=== PATIENT | male | born 1980 | race Caucasian/White ===

== ENCOUNTER 2017-05-28 14:00 | Observation (INO) | payer SELFPAY ==
[~2017-05-28] VITALS: Ht 172.7 cm; Wt 69.0 kg
[2017-05-28 14:02] VITALS: BP 115/70; PULSE 100; RESP 14; TEMP 98.8; O2SAT 99
[2017-05-28 14:04] VITALS: PULSE 94
[2017-05-28] MEDS ORDERED: SODIUM CHLOR 0.9% 1000 ML INJ 1,000 ML IV SCH (17:11)
[2017-05-28] MEDS ORDERED: cefTRIAXone 250 MG VIAL IM ONE (17:15)
[2017-05-28] MEDS ORDERED: AZITHROMYCIN PWD FOR SUSP 1 GM PACKET PO ONE (17:15)
[2017-05-28] MEDS ORDERED: LIDOCAINE HCL 1% 50 ML VIAL XX ONE (17:15)
--- NOTE | 2017-05-28 17:17 | PD ---
HPI Chief Complaint: Complaint Time Seen by Provider: 16:52 Travel History International Travel<30 days: No Contact w/Intl Traveler<30days: No Traveled to known affect area: No History of Present Illness HPI 36-year-old male here for several different complaints. When he states he has had flulike symptoms for 1-2 weeks. He reports frequent diarrhea and a cough. He also believes he may been an STD reporting dysuria and difficulty urinating for one week. He is having suprapubic discomfort which is moderate, constant, worse with movements. He is sexually active with one and one partner. No pain or lesions. He is unsure if he has had a fever. He admits to using marijuana but denies any other illicit drugs or IVDU. PFSH Past Medical History Tetanus Vaccination: < 5 Years Past Surgical History Abdominal Surgery: Yes (HERNIA REPAIR) Other Surgery: Yes (ORBIT FX REPAIR; HERNIATED DISC SURGERY) Social History Alcohol Use: Yes Tobacco Use: Yes (1 PPD) Substance Use: Yes (marijuana) Allergies-Medications (Allergen,Severity, Reaction): Coded Allergies: No Known Allergies (Unverified Allergy, Unknown, 05/28/17) Reported Meds & Prescriptions Reported Meds & Active Scripts Active No Active Prescriptions or Reported Medications Review of Systems Except as stated in HPI: all other systems reviewed are Neg Physical Exam Narrative GENERAL: Well-developed, well-nourished, uncomfortable SKIN: Focused skin assessment warm/dry. No rash. HEAD: Atraumatic. Normocephalic. EYES: Pupils equal and round. No scleral icterus. No injection or drainage. ENT: No nasal bleeding or discharge. Mucous membranes pink and moist. NECK: Trachea midline. No JVD. CARDIOVASCULAR: Regular rate and rhythm. No murmur appreciated. RESPIRATORY: No accessory muscle use. Clear to auscultation. Breath sounds equal bilaterally. GASTROINTESTINAL: Abdomen soft, nondistended. Mild suprapubic tenderness without peritoneal signs. Normal bowel sounds. : Normal exam without lesions, masses, or tenderness. MUSCULOSKELETAL: No obvious deformities. No clubbing. No cyanosis. No edema. NEUROLOGICAL: Awake and alert. No obvious cranial nerve deficits. Motor grossly within normal limits. Normal speech. PSYCHIATRIC: Appropriate mood and affect; insight and judgment normal. Data Data Last Documented VS Vital Signs Date Time Temp Pulse Resp B/P (MAP) Pulse Ox O2 Delivery O2 Flow Rate FiO2 05/28/17 20:18 82 20 119/71 (87) 100 Room Air 05/28/17 14:02 98.8 Orders Orders Complete Blood Count With Diff (05/28/17 17:11) Comprehensive Metabolic Panel (05/28/17 17:11) Lipase (05/28/17 17:11) Prothrombin Time / Inr (Pt) (05/28/17 17:11) Act Partial Throm Time (Ptt) (05/28/17 17:11) Urinalysis - C+S If Indicated (05/28/17 17:11) Ct Abd/Pel W Iv Contrast(Rout) (05/28/17 17:11) Iv Access Insert/Monitor (05/28/17 17:11) Ecg Monitoring (05/28/17 17:11) Oximetry (05/28/17 17:11) Sodium Chlor 0.9% 1000 Ml Inj (Ns 1000 M (05/28/17 17:11) Sodium Chloride 0.9% Flush (Ns Flush) (05/28/17 17:15) Gc And Chlamydia Pcr (05/28/17 17:11) Azithromycin Powd Pack (Zithromax Powd P (05/28/17 17:15) Ceftriaxone Inj (Rocephin Inj) (05/28/17 17:15) Influenzae A/B Antigen (05/28/17 17:11) Non-Formulary Drug (05/28/17 17:30) Diatrizoate Liq ( Gastroview Liq) (05/28/17 17:30) Oral Contrast - Adult (05/28/17 17:28) Urine Culture (05/28/17 17:20) Creatine Kinase (Cpk) (05/28/17 18:24) Drug Screen, Random Urine (05/28/17 18:24) Phenazopyridine (Pyridium) (05/28/17 18:45) Doxycycline (Vibratab) (05/28/17 18:45) Iohexol 350 Inj (Omnipaque 350 Inj) (05/28/17 19:23) Urinary Catheter Insert/Apply (05/28/17 19:55) Labs Laboratory Tests Test 05/28/17 17:20 White Blood Count 11.8 TH/MM3 Red Blood Count 4.43 MIL/MM3 Hemoglobin 14.0 GM/DL Hematocrit 41.3 % Mean Corpuscular Volume 93.3 FL Mean Corpuscular Hemoglobin 31.6 PG Mean Corpuscular Hemoglobin Concent 33.8 % Red Cell Distribution Width 12.6 % Platelet Count 278 TH/MM3 Mean Platelet Volume 8.8 FL Neutrophils (%) (Auto) 82.1 % Lymphocytes (%) (Auto) 10.0 % Monocytes (%) (Auto) 6.9 % Eosinophils (%) (Auto) 0.7 % Basophils (%) (Auto) 0.3 % Neutrophils # (Auto) 9.7 TH/MM3 Lymphocytes # (Auto) 1.2 TH/MM3 Monocytes # (Auto) 0.8 TH/MM3 Eosinophils # (Auto) 0.1 TH/MM3 Basophils # (Auto) 0.0 TH/MM3 CBC Comment DIFF FINAL Differential Comment Prothrombin Time 10.3 SEC Prothromb Time International Ratio 1.0 RATIO Activated Partial Thromboplast Time 32.7 SEC Urine Color YELLOW Urine Turbidity HAZY Urine pH 6.0 Urine Specific [place] 1.009 Urine Protein TRACE mg/dL Urine Glucose (UA) NEG mg/dL Urine Ketones NEG mg/dL Urine Occult Blood TRACE Urine Nitrite NEG Urine Bilirubin NEG Urine Urobilinogen LESS THAN 2.0 MG/DL Urine Leukocyte Esterase LARGE Urine RBC 19 /hpf Urine WBC /hpf Urine WBC Clumps RARE Urine Squamous Epithelial Cells <1 /hpf Urine Amorphous Sediment RARE Urine Bacteria FEW /hpf Urine Mucus FEW /lpf Microscopic Urinalysis Comment CULTURE INDICATED Blood Urea Nitrogen 7 MG/DL Creatinine 0.96 MG/DL Random Glucose 123 MG/DL Total Protein 8.3 GM/DL Albumin 3.8 GM/DL Calcium Level 9.1 MG/DL Alkaline Phosphatase 91 U/L Aspartate Amino Transf (AST/SGOT) 21 U/L Alanine Aminotransferase (ALT/SGPT) 24 U/L Total Bilirubin 0.5 MG/DL Sodium Level 133 MEQ/L Potassium Level 3.8 MEQ/L Chloride Level 97 MEQ/L Carbon Dioxide Level 29.4 MEQ/L Anion Gap 7 MEQ/L Estimat Glomerular Filtration Rate 88 ML/MIN Total Creatine Kinase 65 U/L Lipase 61 U/L Urine Opiates Screen NEG Urine Barbiturates Screen NEG Urine Amphetamines Screen NEG Urine Benzodiazepines Screen NEG Urine Cocaine Screen POS Urine Cannabinoids Screen POS Chlamydia trachomatis DNA (PCR) NOT DETECTED Neisseria gonorrhoeae DNA (PCR) DETECTED MDM Medical Decision Making Medical Screen Exam Complete: Yes Emergency Medical Condition: Yes Differential Diagnosis UTI, cystitis, urethritis, STI, colitis, diverticulitis, appendicitis, influenza , metabolic abnormality, renal insufficiency Narrative Course Vital signs reviewed. CBC and CMP are reviewed and are essentially unremarkable. Lipase is 61. Influenza is negative. Urine drug screen is positive for cocaine and marijuana. UA: Hazy, trace occult blood, large leukocyte esterase, 19 rbc's, innumerable WBCs, rare wbc clumps, few bacteria. The patient was empirically treated for gonorrhea and chlamydia with IM Rocephin and oral azithromycin. He will also be started on doxycycline for urethritis. CT abdomen pelvis: CONCLUSION: 1. Nonspecific edema/induration of the prostate and seminal vesicles. A small intraprostatic abscess is not excludable. No abscess or free fluid in the pelvic cavity. 2. Intussusception of the jejunum, presumably incidental/transient. 3. Slight fatty infiltration of the liver. 4. A few small, benign cysts of the kidneys. The patient has been extremely uncomfortable in the emergency department going to and from the bathroom several times only producing a small amount of urine. Clinically the patient does not have a bowel obstruction. He is not vomiting. His last bowel movement was this morning. He does report having diarrhea for about 2 weeks. Case discussed with on-call urologist Dr. Tang. Plan is to place a Whitlock catheter. Patient is amenable to this plan. Coud catheter placed with over 650 cc of immediate urine output. The patient experienced immediate relief of discomfort. There are no peritoneal signs on the patient's abdominal exam. Patient was made aware of all findings and will be admitted for further treatment and evaluation. Case discussed with hospitalist Dr. Granado who will admit the patient to her service. Diagnosis Primary Impression: Prostatitis Qualified Codes: N41.0 - Acute prostatitis Additional Impressions: Urinary retention Intussusception Admitting Information Admitting Physician Requests: Observation Scripts No Active Prescriptions or Reported Meds Bienvenido Alexander MD May 28, 2017 17:17
[2017-05-28] MEDS ORDERED: NON-FORMULARY DRUG ONE (17:30)
[2017-05-28] MEDS ORDERED: DIATRIZOATE MEGLUM/DIATRIZOATE SOD 9 ML CUP PO ONE (17:30)
[2017-05-28 17:50] VITALS: O2SAT 99
[2017-05-28 17:58] LABS: AUTOMATED NEUTROPHIL # 9.7 TH/MM3 (1.8-7.7); BASOPHIL % 0.3 % (0.0-2.0); EOSINOPHIL # 0.1 TH/MM3 (0-0.4); EOSINOPHIL % 0.7 % (0.0-4.0); HEMATOCRIT 41.3 % (39.0-51.0); LYMPHOCYTE # 1.2 TH/MM3 (1.0-4.8); MEAN CELL VOLUME 93.3 FL (80.0-100.0); MEAN CORPUSCULAR HEMOGLOBIN 31.6 PG (27.0-34.0); MEAN CORPUSCULAR HGB CONC 33.8 % (32.0-36.0); MEAN PLATELET VOLUME 8.8 FL (7.0-11.0); MONO % 6.9 % (0.0-8.0); MONOCYTE # 0.8 TH/MM3 (0-0.9); NEUT % 82.1 % (16.0-70.0); PLATELET COUNT 278 TH/MM3 (150-450); RED BLOOD COUNT 4.43 MIL/MM3 (4.50-5.90); RED CELL DISTRIBUTION WIDTH 12.6 % (11.6-17.2); WHITE BLOOD COUNT 11.8 TH/MM3 (4.0-11.0)
[2017-05-28 18:09] LABS: PROTHROMBIN TIME - PATIENT 10.3 SEC (9.8-11.6)
[2017-05-28 18:10] LABS: AMORPHOUS SEDIMENT, URINE RARE; BACTERIA, URINE FEW /hpf; BILIRUBIN, URINE NEG (NEG); BLOOD, URINE TRACE (NEG); GLUCOSE,URINE NEG (NEG); KETONE, URINE NEG (NEG); MUCUS URINE FEW /lpf (OCC); NITRITE,URINE NEG (NEG); SQUAMOUS EPITHELIAL CELL URINE <1 /hpf (0-5); URINE COLOR YELLOW (YELLW/STRAW); URINE LEUKOCYTE ESTERASE LARGE (NEG); WHITE BLOOD CELL CLUMPS RARE
[2017-05-28 18:23] LABS: ALBUMIN 3.8 GM/DL (3.4-5.0); AST (GOT) 21 U/L (15-37); BICARBONATE 29.4 MEQ/L (21.0-32.0); BLOOD UREA NITROGEN 7 MG/DL (7-18); CALCIUM 9.1 MG/DL (8.5-10.1); CHLORIDE 97 MEQ/L (98-107); CREATININE 0.96 MG/DL (0.60-1.30); GLOMERULAR FILTRATION RATE 88 ML/MIN (>89); GLUCOSE,RANDOM 123 MG/DL (74-106); SODIUM (NA) 133 MEQ/L (136-145)
[2017-05-28 18:27] LABS: ALKALINE PHOSPHATASE 91 U/L (45-117); ALT (GPT) 24 U/L (12-78); TOTAL BILIRUBIN ADULT 0.5 MG/DL (0.2-1.0); TOTAL PROTEIN 8.3 GM/DL (6.4-8.2)
[2017-05-28] MEDS ORDERED: PHENAZOPYRIDINE HCL 100 MG TAB PO ONE (18:45)
[2017-05-28] MEDS ORDERED: DOXYCYCLINE HYCLATE 100 MG TAB PO ONE (18:45)
[2017-05-28] MEDS ORDERED: IOHEXOL 350 MG/ML 10 ML VIAL (for RAD DIAG) IVCONTRAST ONE (19:23)
--- NOTE | 2017-05-28 19:41 | RADRPT ---
EXAM DATE/TIME: 05/28/2017 19:22 [facility] COMPARISON: No previous studies available for comparison. INDICATIONS : Difficulty and pain with urinating; possible STD. IV CONTRAST: 96 cc Omnipaque 350 (iohexol) IV ORAL CONTRAST: Prescribed oral contrast ingested. RADIATION DOSE: 7.43 CTDIvol (mGy) MEDICAL HISTORY : None SURGICAL HISTORY : Inguinal hernia repair. ENCOUNTER: Initial ACUITY: 2 weeks PAIN SCALE: 7/10 LOCATION: abdomen TECHNIQUE: Volumetric scanning of the abdomen and pelvis was performed. Using automated exposure control and ad justment of the mA and/or kV according to patient size, radiation dose was kept as low as reasonably achievable to obtain optimal diagnostic quality images. DICOM format image data is available electro nically for review and comparison. FINDINGS: There is mild edema around the prostate, seminal vesicles and posterior urinary bladder. No masses ar e demonstrated. 9 x 19 mm fluid collection centrally in the prostate, appears to be just to the left of the urethra. No extraprostatic abscess/fluid collection. There is an intussusception of the jejunum, for example series 2 image 41. No associated inflammatory changes or obstruction; this is most likely transient. The rest of the gastrointestinal tract is wit hin normal limits. The appendix is well-visualized, normal. A few scattered cysts of both kidneys measuring up to 1.9 cm on the right and 1.1 cm on the left. No hydronephrosis or acute renal abnormality. Liver is slightly fatty infiltrated. Spleen, pancreas and adrenal glands within normal limits. CONCLUSION: 1. Nonspecific edema/induration of the prostate and seminal vesicles. A small intraprostatic abscess is not excludable. No abscess or free fluid in the pelvic cavity. 2. Intussusception of the jejunum, presumably incidental/transient. 3. Slight fatty infiltration of the liver. 4. A few small, benign cysts of the kidneys. Christopher Piedra MD on May 28, 2017 at 19:33 Board Certified Radiologist. This report was verified electronically.
[2017-05-28 20:18] VITALS: BP 119/71; PULSE 82; RESP 20; O2SAT 100
[2017-05-28] MEDS: SODIUM CHLORIDE 0.9% FLUSH 10 ML FLUSH IV FLUSH PRN (20:36)
[2017-05-28] MEDS ORDERED: DIATRIZOATE MEGLUM/DIATRIZOATE SOD 120 ML BTL (for RAD DIAG) PO ONE (20:43)
--- NOTE | 2017-05-28 20:52 | HHI.HP ---
[facility] No Primary Care Physician Admission Diagnosis prostatitis, urinary retention, intussusception Diagnoses: (1) UTI (urinary tract infection) Diagnosis: Principal (2) Prostatitis Diagnosis: Principal (3) Intussusception Diagnosis: Principal (4) Cocaine abuse Diagnosis: Principal (5) Tobacco abuse Diagnosis: Principal Travel History International Travel<30 Days: No Contact w/Intl Traveler <30 Da: No Traveled to Known Affected Are: No History of Present Illness This is a 36-year-old male with no significant PMH of present the ER with complaints of urinary retention and dysuria. Per patient symptoms have been ongiong x2 wks, believes symptoms are due to "STD". Denies fever, chills, nausea, vomiting or diarrhea. No penile discharge, no lesions. Reports burning pain, 10/10, worse w/ urination, non-radiating. No h/o similar symptoms. On arrival, BP 150/70, HR 100, O2 sat 99% on RA, Afebrile. W WBC 11.8. Chemistry unremarkable except for GFR 88. INR 1.0. A positive for UTI. Urine Drug Screen positive for Cocaine and Marijuana. CT Abdomen/Pelvis was nonspecific edema/induration. Prostate and seminal vesicles, small intraprostatic abscess not excluded, intussusception of cook helper vegetable in am presumably incidental/transient. S/p Whitlock in ER w/ 600cc urinary output. Chlam/GN negative. S/p Rocephin/Zithro in ER. Dr. Tang consulted, will goldal pt in am. Dr. Bullock consulted, no emergent surgical intervention indicated at this time. Review of Systems Except as stated in HPI: all other systems reviewed are Neg ROS: 14 point review of systems otherwise negative. Past Family Social History Past Medical History PMH: None Past Surgical History PAST SURGICAL HISTORY: Hernia Repair, Orbital Fracture Allergies: Coded Allergies: No Known Allergies (Unverified Allergy, Unknown, 05/28/17) Family History PAST FAMILY HISTORY: Reviewed. No h/o DM or CAD Social History PAST SOCIAL HISTORY: Positive for alcohol. Smokes 1ppd. +Cocaine/Marijuana. Physical Exam Vital Signs Vital Signs Date Time Temp Pulse Resp B/P (MAP) Pulse Ox O2 Delivery O2 Flow Rate FiO2 05/28/17 20:18 82 20 119/71 (87) 100 Room Air 05/28/17 17:50 99 05/28/17 14:04 94 05/28/17 14:02 98.8 100 14 115/70 (85) 99 Physical Exam PE: GENERAL: Young white male in no acute distress. HEENT: PERRLA, EOMI. No scleral icterus or conjunctival pallor. No lid lag or facial droop. CARDIOVASCULAR: Regular rate and rhythm. No obvious murmurs to auscultation. No chest tenderness to palpation. RESPIRATORY: No obvious rhonchi or wheezing. Clear to auscultation. Breath sounds equal bilaterally. GASTROINTESTINAL: Abdomen soft, non-tender, nondistended. BS normal. Whitlock in place, clear urine. MUSCULOSKELETAL: Extremities without clubbing, cyanosis, or edema. No obvious deformities. NEUROLOGICAL: Awake, alert and oriented x4. No focal neurologic deficits. Moving both upper and lower extremities spontaneously. Laboratory Laboratory Tests Test 05/28/17 17:20 White Blood Count 11.8 Red Blood Count 4.43 Hemoglobin 14.0 Hematocrit 41.3 Mean Corpuscular Volume 93.3 Mean Corpuscular Hemoglobin 31.6 Mean Corpuscular Hemoglobin Concent 33.8 Red Cell Distribution Width 12.6 Platelet Count 278 Mean Platelet Volume 8.8 Neutrophils (%) (Auto) 82.1 Lymphocytes (%) (Auto) 10.0 Monocytes (%) (Auto) 6.9 Eosinophils (%) (Auto) 0.7 Basophils (%) (Auto) 0.3 Neutrophils # (Auto) 9.7 Lymphocytes # (Auto) 1.2 Monocytes # (Auto) 0.8 Eosinophils # (Auto) 0.1 Basophils # (Auto) 0.0 CBC Comment DIFF FINAL Differential Comment Prothrombin Time 10.3 Prothromb Time International Ratio 1.0 Activated Partial Thromboplast Time 32.7 Urine Color YELLOW Urine Turbidity HAZY Urine pH 6.0 Urine Specific [place] 1.009 Urine Protein TRACE Urine Glucose (UA) NEG Urine Ketones NEG Urine Occult Blood TRACE Urine Nitrite NEG Urine Bilirubin NEG Urine Urobilinogen LESS THAN 2.0 Urine Leukocyte Esterase LARGE Urine RBC 19 Urine WBC Urine WBC Clumps RARE Urine Squamous Epithelial Cells <1 Urine Amorphous Sediment RARE Urine Bacteria FEW Urine Mucus FEW Microscopic Urinalysis Comment CULTURE INDICATED Blood Urea Nitrogen 7 Creatinine 0.96 Random Glucose 123 Total Protein 8.3 Albumin 3.8 Calcium Level 9.1 Alkaline Phosphatase 91 Aspartate Amino Transf (AST/SGOT) 21 Alanine Aminotransferase (ALT/SGPT) 24 Total Bilirubin 0.5 Sodium Level 133 Potassium Level 3.8 Chloride Level 97 Carbon Dioxide Level 29.4 Anion Gap 7 Estimat Glomerular Filtration Rate 88 Total Creatine Kinase 65 Lipase 61 Urine Opiates Screen NEG Urine Barbiturates Screen NEG Urine Amphetamines Screen NEG Urine Benzodiazepines Screen NEG Urine Cocaine Screen POS Urine Cannabinoids Screen POS Chlamydia trachomatis DNA (PCR) NOT DETECTED Neisseria gonorrhoeae DNA (PCR) DETECTED Date/Time Source Procedure Growth Status 05/28/17 17:20 Nasal Washing Influenza Types A,B Antigen (TL) - Final NEGATIVE FOR FLU A AND B ANTIGEN.... Complete 05/28/17 17:20 Urine Random Urine Urine Culture Pending Received Result Diagram: 05/28/17 1720 05/28/17 1720 Caprini VTE Risk Assessment Caprini VTE Risk Assessment: No/Low Risk (score <= 1) Caprini Risk Assessment Model Point Value = 1 Point Value = 2 Point Value = 3 Point Value = 5 Age 41-60 Minor surgery BMI > 25 kg/m2 Swollen legs Varicose veins or History of unexplained or recurrent spontaneous Oral contraceptives or hormone replacement Sepsis (< 1 month) Serious lung disease, including pneumonia (< 1 month) Abnormal pulmonary function Acute myocardial infarction Congestive heart failure (< 1 month) History of inflammatory bowel disease Medical patient at bed rest Age 61-74 Arthroscopic surgery Major open surgery (> 45 min) Laparoscopic surgery (> 45 min) Malignancy Confined to bed (> 72 hours) Immobilizing plaster cast Central venous access Age >= 75 History of VTE Family history of VTE Factor V Leiden Prothrombin [id number] Lupus anticoagulant Anticardiolipin antibodies Elevated serum homocysteine Heparin-induced thrombocytopenia Other congenital or acquired thrombophilia Stroke (< 1 month) Elective arthroplasty Hip, pelvis, or leg fracture Acute spinal cord injury (< 1 month) Prophylaxis Regimen Total Risk Factor Score Risk Level Prophylaxis Regimen 0-1 Low Early ambulation 2 Moderate Order ONE of the following: *Sequential Compression Device (SCD) *Heparin 5000 units SQ BID 3-4 Higher Order ONE of the following medications: *Heparin 5000 units SQ TID *Enoxaparin/Lovenox 40 mg SQ daily (WT < 150 kg, CrCl > 30 mL/min) *Enoxaparin/Lovenox 30 mg SQ daily (WT < 150 kg, CrCl > 10-29 mL/min) *Enoxaparin/Lovenox 30 mg SQ BID (WT < 150 kg, CrCl > 30 mL/min) AND/OR *Sequential Compression Device (SCD) 5 or more Highest Order ONE of the following medications: *Heparin 5000 units SQ TID (Preferred with Epidurals) *Enoxaparin/Lovenox 40 mg SQ daily (WT < 150 kg, CrCl > 30 mL/min) *Enoxaparin/Lovenox 30 mg SQ daily (WT < 150 kg, CrCl > 10-29 mL/min) *Enoxaparin/Lovenox 30 mg SQ BID (WT < 150 kg, CrCl > 30 mL/min) AND *Sequential Compression Device (SCD) Assessment and Plan Problem List: (1) UTI (urinary tract infection) ICD Code: N39.0 - Urinary tract infection, site not specified (2) Prostatitis ICD Code: N41.9 - Inflammatory disease of prostate, unspecified Status: Acute (3) Intussusception ICD Code: K56.1 - Intussusception Status: Acute (4) Cocaine abuse ICD Code: F14.10 - Cocaine abuse, uncomplicated (5) Tobacco abuse ICD Code: Z72.0 - Tobacco use Assessment and Plan A/P: 1. UTI: U/a w/ UTI, follow up cultures, IV Cipro, IVF for hydration. Pyridium as needed. 2. Prostatitis: w/ associated urinary retention, s/p Whitlock w/ good urine output. Monitor I/O. CT Abd/Pelvis w/ induration of prostate and seminal vesicles with possible small intraprostatic abscess, images reviewed by me. Start Cipro IV, continue w/ IVF. Dr. Tang consulted, will eval in am. 3. Intussusception: of jejunum, incidental finding on CT. Dr. Bullock consulted by ER physician, no emergent surgical intervention needed. Will monitor closely for possible obstruction. Analgesics/antiemetics as needed. 4. Cocaine Abuse: Pt counselled. Ativan prn. 5. Tobacco Abuse: Pt counselled. NicoDerm if needed 6. DVT Prophylaxis: SCD/Teds. 7. Social work for d/c planning as needed. 8. Case discussed w/ ER physician at length, labs/records/imaging reviewed by me. Problem Qualifiers (1) Prostatitis: Qualified Codes: N41.0 - Acute prostatitis Maria Luisa Granado MD May 28, 2017 20:52
[2017-05-28] MEDS: DOCUSATE SODIUM 50 MG/SENNA 8.6 MG TAB PO SCH (21:00)
[2017-05-28] MEDS ORDERED: ONDANSETRON HCL 4 MG/2 ML VIAL IVP PRN (21:00)
[2017-05-28] MEDS ORDERED: MAGNESIUM HYDROXIDE SUSP 30 ML CUP PO PRN (21:00)
[2017-05-28] MEDS ORDERED: LORazepam 2 MG/ML VIAL IV PUSH PRN (21:00)
[2017-05-28] MEDS ORDERED: SENNOSIDES 8.6 MG TAB PO PRN (21:00)
[2017-05-28] MEDS ORDERED: SODIUM CHLORIDE 0.9% FLUSH 10 ML FLUSH IV FLUSH PRN (21:00)
[2017-05-28] MEDS ORDERED: BISACODYL 10 MG SUPP RECTAL PRN (21:00)
[2017-05-28] MEDS ORDERED: ACETAMINOPHEN 325 MG TAB PO PRN (21:00)
[2017-05-28] MEDS ORDERED: LACTULOSE SYRUP 20 GM/30 ML CUP PO PRN (21:00)
[2017-05-28] MEDS: SODIUM CHLOR 0.9% 1000 ML INJ 1,000 ML IV SCH (21:00)
[2017-05-28] MEDS: SODIUM CHLORIDE 0.9% FLUSH 10 ML FLUSH IV FLUSH SCH (21:00)
[2017-05-28] MEDS: ACETAMINOPHEN/HYDROcodone 325 MG/5 MG TAB PO PRN (23:17)
[2017-05-29 00:48] VITALS: BP 108/57; PULSE 86; RESP 18; TEMP 97; O2SAT 97
[2017-05-29 04:29] VITALS: BP 96/56; PULSE 73; RESP 18; TEMP 97.8; O2SAT 96
--- NOTE | 2017-05-29 05:52 | MB ---
cc: JASPAL SALVADOR MD DATE OF CONSULTATION 05/28/2017 REASON FOR CONSULTATION Abdominal pain, intussusception. HISTORY OF PRESENT ILLNESS The patient is a 36-year-old male who presents with no past medical history, complaint of urinary retention, dysuria. The patient states these symptoms have been going on for two weeks. There is concern for an STD. He denies any fevers or chills but reports 10/10 burning pain at urination and flu-like symptoms. He had further workup including a UA showing UTI and a positive drug screen for marijuana and cocaine. He had further evaluation with CT scan showing prostatitis and intussusception concern. Whitlock has been placed. A Neurology consult has been placed. Surgery was consulted for evaluation. The patient denies any significant obstructive symptoms. He has had some diarrhea and has had some bowel movements. He denies any nausea, vomiting or significant upper abdominal pain. PAST MEDICAL HISTORY No significant past medical history. PAST SURGICAL HISTORY 1. Hernia repair. 2. Orbit fracture. ALLERGIES No known drug allergies. FAMILY HISTORY Denies diabetes or hypertension. SOCIAL HISTORY Denies IVDA. Positive smoking, EtOH and cocaine and marijuana. MEDICATIONS See EMR. REVIEW OF SYSTEMS GENERAL: Complains of flu-like symptoms. Denies fevers. HEENT: Denies eye pain, ear pain. NECK: Denies swelling or pain. LUNGS: Denies cough or wheeze. HEART: Denies palpitation or chest pain. ABDOMEN: Complaint of low pelvic pain. No significant abdominal pain. : Complains of dysuria and burning. ENDOCRINE: Denies polyuria, polydipsia. MUSCULOSKELETAL: Denies arthralgias or myalgias. NEUROLOGIC: Denies numbness or tingling. INTEGUMENT: Denies any masses or lesions. PHYSICAL EXAMINATION GENERAL: The patient in no acute distress. VITAL SIGNS: Temperature 98, pulse 100, respirations 14, blood pressure 115/70, saturation 99%. HEENT: Pupils equal, round, reactive. NECK: Supple. Trachea midline. LUNGS: Clear to auscultation. HEART: S1-S2, regular. ABDOMEN: Soft, mild tenderness to deep palpation to the pelvic area, nondistended. No rebound. NEURO: GCS of 15. 5/5 motor in all extremities. INTEGUMENT: No obvious masses or lesions. PSYCH: Appropriate mood, appropriate judgment. LABORATORY AND DIAGNOSTIC DATA WBC 11.8, hemoglobin 14, hematocrit 41.3, platelets 278. Sodium 133, potassium 3.8, chloride 97, BUN 7, creatinine 0.9, calcium 9, AST 21, ALT 24, alkaline phos of 91, lipase 61. INR is 1. CT reviewed by myself showing edema of the prostate, concern for prostatitis. Possible abscess. Intussusception at jejunum. No dilated bowel. ASSESSMENT The patient is a 36-year-old male who presents with concern for a positive UA, prostatitis, a UTI and an incidental intussusception. PLAN After a full clinical, radiologic and laboratory workup, the patient with the above-named issues including intussusception. At this point discussed with the patient. The patient has no obstructive symptoms. This could either be an incidental finding and really normal anatomy, just concern for the views of the CT in the way the CT was evaluated. Also discussed with the patient could be a mass or tumor causing lead point for possible intussusception. Further discuss other etiologies such as a lymph node or lymphatic swelling tissue. Discussed with the patient that typically intussusception is an obstructive process and could strangulate bowel. Therefore we will need to follow this closely. However, at this time unlikely for operative intervention as the patient is very young and appears to be asymptomatic from this. We will consider getting upper GI, small-bowel follow-through for further evaluation and delineation versus repeating a CT scan or possible another x-ray. Discussed with the patient in detail, states understanding, agreed and we will proceed. MD EBCKA Harrison/CORTNEY /11:44 PM /5:37 AM
[2017-05-29 07:13] LABS: AUTOMATED NEUTROPHIL # 6.2 TH/MM3 (1.8-7.7); BASOPHIL % 0.5 % (0.0-2.0); EOSINOPHIL # 0.1 TH/MM3 (0-0.4); HEMATOCRIT 37.9 % (39.0-51.0); LYMPHOCYTE # 1.3 TH/MM3 (1.0-4.8); MEAN CORPUSCULAR HGB CONC 34.4 % (32.0-36.0); MEAN PLATELET VOLUME 9.3 FL (7.0-11.0); MONO % 8.5 % (0.0-8.0); MONOCYTE # 0.7 TH/MM3 (0-0.9); PLATELET COUNT 253 TH/MM3 (150-450); RED BLOOD COUNT 4.07 MIL/MM3 (4.50-5.90); RED CELL DISTRIBUTION WIDTH 12.6 % (11.6-17.2); WHITE BLOOD COUNT 8.3 TH/MM3 (4.0-11.0)
[2017-05-29 07:25] LABS: ALBUMIN 3.4 GM/DL (3.4-5.0); AST (GOT) 19 U/L (15-37); BICARBONATE 30.7 MEQ/L (21.0-32.0); BLOOD UREA NITROGEN 6 MG/DL (7-18); CALCIUM 9.2 MG/DL (8.5-10.1); CHLORIDE 100 MEQ/L (98-107); CREATININE 0.85 MG/DL (0.60-1.30); GLOMERULAR FILTRATION RATE 101 ML/MIN (>89); GLUCOSE,RANDOM 84 MG/DL (74-106); SODIUM (NA) 140 MEQ/L (136-145)
[2017-05-29 07:26] LABS: ALT (GPT) 23 U/L (12-78)
[2017-05-29 07:29] LABS: ALKALINE PHOSPHATASE 79 U/L (45-117); TOTAL BILIRUBIN ADULT 0.6 MG/DL (0.2-1.0); TOTAL PROTEIN 7.6 GM/DL (6.4-8.2)
[2017-05-29 07:50] VITALS: BP 105/71; PULSE 85; RESP 18; TEMP 97.8; O2SAT 98
[2017-05-29] MEDS: SODIUM CHLORIDE 0.9% FLUSH 10 ML FLUSH IV FLUSH SCH ×2 (08:00→21:00)
[2017-05-29] MEDS: CIPROFLOXACIN 400 MG PREMIX 200 ML IV SCH ×2 (08:00→21:00)
[2017-05-29] MEDS: DOCUSATE SODIUM 50 MG/SENNA 8.6 MG TAB PO SCH ×2 (08:01→21:00)
[2017-05-29] MEDS: SODIUM CHLOR 0.9% 1000 ML INJ 1,000 ML IV SCH ×2 (08:01→18:30)
[2017-05-29] MEDS: MORPHINE SULFATE 2 MG/ML INJ IV PUSH PRN ×2 (08:15→11:18)
--- NOTE | 2017-05-29 08:54 | MB ---
cc: VANESA HOOK DATE OF CONSULTATION 05/29/2017 HISTORY OF PRESENT ILLNESS Mr. Parekh is a 36-year-old male who presents with irritative voiding symptoms for the last two weeks. He states that he was having frequency and urgency at times with dysuria. He also stated that he had diarrhea at times as well as a drip from his penis also was noted. He does have a history of herpes in the past. He denies any other medical problems. He denies any history of urinary tract infections. PAST MEDICAL HISTORY His medical history is notable for herpes. PAST SURGICAL HISTORY 1. Inguinal hernia repair with mesh. 2. Orbital fracture. 3. Back surgery for herniated disk. ALLERGIES No known drug allergies. FAMILY HISTORY No family history of prostate cancer. SOCIAL HISTORY He is noted to smoke and drink and his recent tox cream was positive for marijuana and cocaine. REVIEW OF SYSTEMS Notes irritative voiding symptoms such as dysuria, urgency, frequency with nocturia and dysuria. Denies gait disturbances, bleeding disorders. Denies chest pain, shortness of breath. Denies abdominal pain. Denies nausea or vomiting. States that he has had fever and chills, though no fever on admission. Denies gross hematuria. The remaining review of systems were reviewed and were negative. PHYSICAL EXAMINATION VITAL SIGNS: Presently is 97.8 temperature, heart rate 85, respiratory 18, 105/71, 98% on room air. GENERAL: He is well-developed, well-nourished 36-year-old male in no acute distress. HEENT: Normocephalic, atraumatic. Pupils equal, round, regular, reactive to light. Extraocular movements intact. NECK: Supple. HEART: Regular rate and rhythm. LUNGS: Clear. ABDOMEN: soft, nontender, nondistended. : Whitlock is in place. Normal phallus. Testes are descended. Prostate is enlarged, approximately 40 grams. Some tenderness is noted but nonspecific. EXTREMITIES: No cyanosis, clubbing or edema. NEUROLOGICAL EXAMINATION: Cranial nerves II-XII intact. PSYCH: Generalized mood. LABORATORY DATA White count 8.3, hemoglobin 13.0, hematocrit 37.9, platelet count of 253. Sodium 140, potassium 3.4, chloride 100, CO2 38.7, BUN of 6, creatinine 0.85, glucose of 84. Urinalysis shows large leukocyte esterase with 19 red cells and numerous white cells. PT 10.3 and INR 1.0, PTT is 32.7. Tox screen is positive for cocaine and marijuana. PCR DNA for Neisseria gonorrhea was detected. IMAGING STUDY 1. Nonspecific edema with induration of the prostate and seminal vesicles. Questionable small intraprostatic asset is not excluded. No free fluid or abscess in the pelvic cavity is noted. 2. Intussusception of the jejunum presently incidental, transient. Fatty infiltration of the liver is noted and a few small benign cysts in the kidneys. ASSESSMENT This is a 36-year-old male admitted with irritative voiding symptoms with dysuria, urgency, frequency and evidence of gonorrhea with urinary retention. Whitlock placed for [address] scan demonstrates questionable/possible abscess of the prostate. PLAN 1. Maintain the Whitlock catheter now and continue to continue with IV antibiotics. 2. We will continue to observe and may repeat the scan within the next 36-72 hours to reevaluate the prostate at that time. 3. We will follow closely with you. Thank you for the consult and allowing me to participate in the care of this patient. Vanesa THOMPSON/CORTNEY /8:23 AM /8:36 AM
--- NOTE | 2017-05-29 10:51 | RADRPT ---
EXAM DATE/TIME: 05/29/2017 08:44 [facility] COMPARISON: CT ABDOMEN & PELVIS W CONTRAST, May 28, 2017, 19:22. INDICATIONS : Patient with abdominal pain and difficulty urinating.. Abnormal CT demonstrating an intussusception i n the proximal jejunum. FLUORO TIME: 1.9 minutes IMAGE COUNT: 19 CONTRAST: [place] IMAGING TIME(S): 15 min, 30 min, 45 min MEDICAL HISTORY : prostatitis, urinary retension SURGICAL HISTORY : Inguinal hernia repair. ENCOUNTER: Initial ACUITY: 2 weeks PAIN SCORE: 7/10 LOCATION: Bilateral Abdomen. FINDINGS: Preliminary film is unremarkable. The stomach is grossly unremarkable. Examination of the small bowel demonstrates normal mucosal pattern involving the jejunum and ileum. There is no evidence of mass or obstruction. No intraluminal filling defects are identified. Small bowel transit time is normal at 45 minutes. Fluoroscopy of the abdomen and terminal ileum demonstrat es no abnormality. CONCLUSION: Unremarkable small bowel examination. The intussusception seen on the CT is not visu alized. Bharath Valente MD on May 29, 2017 at 10:44 Board Certified Radiologist. This report was verified electronically.
[2017-05-29 12:36] VITALS: BP 101/64; PULSE 76; RESP 18; TEMP 97.6; O2SAT 99
--- NOTE | 2017-05-29 13:36 | HHI.PR ---
Subjective Remarks Follow up for UTI, STD, urinary retention. Patient is currently doing well. He denies any chest pain, shortness of breath, fever or chills. He is doing well on Whitlock catheter. He denies any abdominal pain, nausea or vomiting. Objective Vitals Vital Signs Date Time Temp Pulse Resp B/P (MAP) Pulse Ox O2 Delivery O2 Flow Rate FiO2 05/29/17 12:36 97.6 76 18 101/64 (76) 99 05/29/17 07:50 97.8 85 18 105/71 (82) 98 05/29/17 04:29 97.8 73 18 96/56 (69) 96 05/29/17 00:48 97.0 86 18 108/57 (74) 97 05/28/17 20:18 82 20 119/71 (87) 100 Room Air 05/28/17 17:50 99 05/28/17 14:04 94 05/28/17 14:02 98.8 100 14 115/70 (85) 99 I/O 05/28/17 05/28/17 05/28/17 05/29/17 05/29/17 05/29/17 07:00 15:00 23:00 07:00 15:00 23:00 Intake Total 900 ml Output Total 1000 ml 2450 ml Balance -100 ml -2450 ml Intake IV Total 900 ml Output Urine Total 1000 ml 2450 ml # Voids 0 # Bowel Movements 4 Result Diagram: 05/29/17 0504 05/29/17 0504 Imaging Last Impressions Abdomen/Pelvis CT 05/28/17 1711 Signed Impressions: Service Date/Time: Sunday, May 28, 2017 19:22 - CONCLUSION: 1. Nonspecific edema/induration of the prostate and seminal vesicles. A small intraprostatic abscess is not excludable. No abscess or free fluid in the pelvic cavity. 2. Intussusception of the jejunum, presumably incidental/transient. 3. Slight fatty infiltration of the liver. 4. A few small, benign cysts of the kidneys. Christopher Piedra MD Small Bowel X-Ray 05/28/17 0000 Signed Impressions: Service Date/Time: Monday, May 29, 2017 08:44 - CONCLUSION: Unremarkable small bowel examination. The intussusception seen on the CT is not visualized. Bharath Valente MD Objective Remarks GENERAL: Alert, oriented 3, NAD. Folic catheter in place. SKIN: Warm and dry. HEAD: Normocephalic. EYES: No scleral icterus. No injection or drainage. NECK: Supple, trachea midline. No JVD or lymphadenopathy. CARDIOVASCULAR: Regular rate and rhythm without murmurs, gallops, or rubs. RESPIRATORY: Breath sounds equal bilaterally. No accessory muscle use. GASTROINTESTINAL: Abdomen soft, non-tender, nondistended. MUSCULOSKELETAL: No cyanosis, or edema. BACK: Nontender without obvious deformity. No CVA tenderness. Procedures None A/P Problem List: (1) UTI (urinary tract infection) ICD Code: N39.0 - Urinary tract infection, site not specified (2) Prostatitis ICD Code: N41.9 - Inflammatory disease of prostate, unspecified Status: Acute (3) Intussusception ICD Code: K56.1 - Intussusception Status: Acute (4) Cocaine abuse ICD Code: F14.10 - Cocaine abuse, uncomplicated (5) Tobacco abuse ICD Code: Z72.0 - Tobacco use Assessment and Plan This is a 36-year-old male with no significant PMH of present the ER with complaints of urinary retention and dysuria. No penile discharge, no lesions. Reported burning pain, 10/10, worse w/ urination, non-radiating. On arrival, BP 150/70, HR 100, O2 sat 99% on RA, Afebrile. W WBC 11.8. Chemistry unremarkable except for GFR 88. INR 1.0. A positive for UTI. Urine Drug Screen positive for Cocaine and Marijuana. - Urinary tract infection - Probable prostatitis - Gonorrhea - Urinary retention - Patient received ceftriaxone 250 mg IM and azithromycin 1 g by mouth. - Continue ciprofloxacin 400 mg IV every 12 hours. Continue IV fluid. - Urology is following patient. Continue Whitlock catheter. Urology recommends possible scanning 36-72 hours - [place], morphine when necessary for pain - Intussusception - incidental finding on CT imaging. Gen. surgery was consulted. - Small bowel follow-through does not show any intussusception. - Cocaine abuse - Tobacco abuse - Patient has been counseled. - Lorazepam when necessary Full code. Ambulation, SCDs. Problem Qualifiers (1) Prostatitis: Qualified Codes: N41.0 - Acute prostatitis Nilo Baumann DO May 29, 2017 1:36 pm
--- NOTE | 2017-05-29 13:42 | HHI.PR ---
cc: Mina Bullock MD Subjective Subjective Notes no acute issues, no vomiting, pelvic pain Objective Vitals/I&O Vital Signs Date Time Temp Pulse Resp B/P (MAP) Pulse Ox O2 Delivery O2 Flow Rate FiO2 05/29/17 12:36 97.6 76 18 101/64 (76) 99 05/28/17 20:18 Room Air Labs Laboratory Tests Test 05/28/17 17:20 05/29/17 05:04 White Blood Count 11.8 8.3 Red Blood Count 4.43 4.07 Hemoglobin 14.0 13.0 Hematocrit 41.3 37.9 Mean Corpuscular Volume 93.3 93.0 Mean Corpuscular Hemoglobin 31.6 32.0 Mean Corpuscular Hemoglobin Concent 33.8 34.4 Red Cell Distribution Width 12.6 12.6 Platelet Count 278 253 Mean Platelet Volume 8.8 9.3 Neutrophils (%) (Auto) 82.1 74.0 Lymphocytes (%) (Auto) 10.0 16.0 Monocytes (%) (Auto) 6.9 8.5 Eosinophils (%) (Auto) 0.7 1.0 Basophils (%) (Auto) 0.3 0.5 Neutrophils # (Auto) 9.7 6.2 Lymphocytes # (Auto) 1.2 1.3 Monocytes # (Auto) 0.8 0.7 Eosinophils # (Auto) 0.1 0.1 Basophils # (Auto) 0.0 0.0 CBC Comment DIFF FINAL DIFF FINAL Differential Comment Prothrombin Time 10.3 Prothromb Time International Ratio 1.0 Activated Partial Thromboplast Time 32.7 Urine Color YELLOW Urine Turbidity HAZY Urine pH 6.0 Urine Specific [place] 1.009 Urine Protein TRACE Urine Glucose (UA) NEG Urine Ketones NEG Urine Occult Blood TRACE Urine Nitrite NEG Urine Bilirubin NEG Urine Urobilinogen LESS THAN 2.0 Urine Leukocyte Esterase LARGE Urine RBC 19 Urine WBC Urine WBC Clumps RARE Urine Squamous Epithelial Cells <1 Urine Amorphous Sediment RARE Urine Bacteria FEW Urine Mucus FEW Microscopic Urinalysis Comment CULTURE INDICATED Blood Urea Nitrogen 7 6 Creatinine 0.96 0.85 Random Glucose 123 84 Total Protein 8.3 7.6 Albumin 3.8 3.4 Calcium Level 9.1 9.2 Alkaline Phosphatase 91 79 Aspartate Amino Transf (AST/SGOT) 21 19 Alanine Aminotransferase (ALT/SGPT) 24 23 Total Bilirubin 0.5 0.6 Sodium Level 133 140 Potassium Level 3.8 3.5 Chloride Level 97 100 Carbon Dioxide Level 29.4 30.7 Anion Gap 7 9 Estimat Glomerular Filtration Rate 88 101 Total Creatine Kinase 65 Lipase 61 Urine Opiates Screen NEG Urine Barbiturates Screen NEG Urine Amphetamines Screen NEG Urine Benzodiazepines Screen NEG Urine Cocaine Screen POS Urine Cannabinoids Screen POS Chlamydia trachomatis DNA (PCR) NOT DETECTED Neisseria gonorrhoeae DNA (PCR) DETECTED Date/Time Source Procedure Growth Status 05/28/17 17:20 Nasal Washing Influenza Types A,B Antigen (TL) - Final NEGATIVE FOR FLU A AND B ANTIGEN.... Complete 05/28/17 17:20 Urine Random Urine Urine Culture Pending Received Abdomen: Other (soft mild ttp pelvic) A/P Assessment and Plan r/o intususecption PLAN SBFT normal, no obstruction ok for reg diet will s/o, reconsult if needed Mina Bullock MD May 29, 2017 13:42
[2017-05-29 16:33] VITALS: BP 120/71; PULSE 76; RESP 21; TEMP 98.3; O2SAT 98
[2017-05-29] MEDS: ACETAMINOPHEN/HYDROcodone 325 MG/5 MG TAB PO PRN (21:01)
[2017-05-29 21:45] VITALS: BP 112/64; PULSE 70; RESP 18; TEMP 98.1; O2SAT 96
[2017-05-30 03:37] VITALS: BP 100/56; PULSE 67; RESP 18; TEMP 97.9; O2SAT 99
[2017-05-30] MEDS: SODIUM CHLOR 0.9% 1000 ML INJ 1,000 ML IV SCH ×3 (03:54→23:00)
[2017-05-30] MEDS: ACETAMINOPHEN/HYDROcodone 325 MG/5 MG TAB PO PRN ×2 (03:54→20:13)
[2017-05-30] MEDS: CIPROFLOXACIN 400 MG PREMIX 200 ML IV SCH ×2 (08:05→20:13)
[2017-05-30] MEDS: SODIUM CHLORIDE 0.9% FLUSH 10 ML FLUSH IV FLUSH SCH ×2 (08:05→20:07)
[2017-05-30] MEDS: DOCUSATE SODIUM 50 MG/SENNA 8.6 MG TAB PO SCH ×2 (08:05→20:07)
--- NOTE | 2017-05-30 08:30 | HHI.PR ---
Subjective Patient symptoms today Pt seen and examined. Feeling better. Urine clear. Objective Vital Signs Vital Signs Date Time Temp Pulse Resp B/P (MAP) Pulse Ox O2 Delivery O2 Flow Rate FiO2 05/30/17 04:54 15 05/30/17 03:37 97.9 67 18 100/56 (71) 99 05/29/17 21:45 98.1 70 18 112/64 (80) 96 05/29/17 16:33 98.3 76 21 120/71 (87) 98 05/29/17 12:36 97.6 76 18 101/64 (76) 99 Intake & Output 05/30/17 05/30/17 07:00 19:00 Intake Total 200 ml Balance 200 ml Intake IV Total 200 ml Result Diagram: 05/29/17 0504 05/29/17 0504 Objective Remarks Abd: soft,nt,nd Whitlock with clear urine. Medications and IVs Current Medications Medications (Trade) Dose Ordered Sig/Alonso Route Start Time Stop Time Status Last Admin Ciprofloxacin/ Dextrose 200 ml @ 200 mls/hr Q12H IV 05/29/17 09:00 05/30/17 08:05 (Ativan Inj) 1 mg Q2H PRN IV PUSH 05/28/17 21:00 05/28/17 21:59 Sodium Chloride 1,000 ml @ 100 mls/hr Q10H IV 05/28/17 21:00 05/30/17 03:54 (NS Flush) 2 ml UNSCH PRN IV FLUSH 05/28/17 21:00 (NS Flush) 2 ml BID IV FLUSH 05/28/17 21:00 (Zofran Inj) 4 mg Q6H PRN IVP 05/28/17 21:00 (Tylenol) 650 mg Q6H PRN PO 05/28/17 21:00 (Acme 5-325 Mg) 1 tab Q4H PRN PO 05/28/17 21:00 05/30/17 03:54 (Morphine Inj) 2 mg Q3H PRN IV PUSH 05/28/17 21:00 05/29/17 11:18 (Karen-Colace) 1 tab BID PO 05/28/17 21:00 (Milk Of Magnesia Liq) 30 ml Q12H PRN PO 05/28/17 21:00 (Senokot) 17.2 mg Q12H PRN PO 05/28/17 21:00 (Dulcolax Supp) 10 mg DAILY PRN RECTAL 05/28/17 21:00 (Lactulose Liq) 30 ml DAILY PRN PO 05/28/17 21:00 Assessment and Plan Assessment and Plan Stable s/p urinary retention with GC and questionable prostatic abcess Plan for repeat CT of pelvis tomorrow AM Possible void trial after CT scan Stephen Tang DO May 30, 2017 08:30
[2017-05-30 08:39] VITALS: BP 106/62; PULSE 65; RESP 16; TEMP 98.1; O2SAT 98
[2017-05-30] MEDS: MORPHINE SULFATE 2 MG/ML INJ IV PUSH PRN ×2 (10:30→11:05)
--- NOTE | 2017-05-30 11:21 | HHI.PR ---
Subjective Remarks Follow up for UTI, STD, urinary retention, possible prostatic abscess. Patient is currently doing well. No acute concerns. He was hoping to go home today. However, he will undergo a CT study tomorrow. No fever, chills. Objective Vitals Vital Signs Date Time Temp Pulse Resp B/P (MAP) Pulse Ox O2 Delivery O2 Flow Rate FiO2 05/30/17 08:39 98.1 65 16 106/62 (77) 98 05/30/17 04:54 15 05/30/17 03:37 97.9 67 18 100/56 (71) 99 05/29/17 21:45 98.1 70 18 112/64 (80) 96 05/29/17 16:33 98.3 76 21 120/71 (87) 98 05/29/17 12:36 97.6 76 18 101/64 (76) 99 I/O 05/29/17 05/29/17 05/29/17 05/30/17 05/30/17 05/30/17 07:00 15:00 23:00 07:00 15:00 23:00 Intake Total 200 ml Output Total 2750 ml Balance -2750 ml 200 ml Intake IV Total 200 ml Output Urine Total 2750 ml # Bowel Movements 4 Result Diagram: 05/29/17 0504 05/29/17 0504 Imaging Last Impressions Abdomen/Pelvis CT 05/28/17 1711 Signed Impressions: Service Date/Time: Sunday, May 28, 2017 19:22 - CONCLUSION: 1. Nonspecific edema/induration of the prostate and seminal vesicles. A small intraprostatic abscess is not excludable. No abscess or free fluid in the pelvic cavity. 2. Intussusception of the jejunum, presumably incidental/transient. 3. Slight fatty infiltration of the liver. 4. A few small, benign cysts of the kidneys. Christopher Piedra MD Small Bowel X-Ray 05/28/17 0000 Signed Impressions: Service Date/Time: Monday, May 29, 2017 08:44 - CONCLUSION: Unremarkable small bowel examination. The intussusception seen on the CT is not visualized. Bharath Valente MD Objective Remarks GENERAL: Alert, oriented 3, NAD. Folic catheter in place. SKIN: Warm and dry. HEAD: Normocephalic. EYES: No scleral icterus. No injection or drainage. NECK: Supple, trachea midline. No JVD or lymphadenopathy. CARDIOVASCULAR: Regular rate and rhythm without murmurs, gallops, or rubs. RESPIRATORY: Breath sounds equal bilaterally. No accessory muscle use. GASTROINTESTINAL: Abdomen soft, non-tender, nondistended. MUSCULOSKELETAL: No cyanosis, or edema. BACK: Nontender without obvious deformity. No CVA tenderness. Procedures None A/P Problem List: (1) UTI (urinary tract infection) ICD Code: N39.0 - Urinary tract infection, site not specified (2) Prostatitis ICD Code: N41.9 - Inflammatory disease of prostate, unspecified Status: Acute (3) Intussusception ICD Code: K56.1 - Intussusception Status: Acute (4) Cocaine abuse ICD Code: F14.10 - Cocaine abuse, uncomplicated (5) Tobacco abuse ICD Code: Z72.0 - Tobacco use Assessment and Plan This is a 36-year-old male with no significant PMH of present the ER with complaints of urinary retention and dysuria. No penile discharge, no lesions. Reported burning pain, 10/10, worse w/ urination, non-radiating. On arrival, BP 150/70, HR 100, O2 sat 99% on RA, Afebrile. W WBC 11.8. Chemistry unremarkable except for GFR 88. INR 1.0. A positive for UTI. Urine Drug Screen positive for Cocaine and Marijuana. - Urinary tract infection - Probable prostatitis - Gonorrhea - Urinary retention - Patient received ceftriaxone 250 mg IM and azithromycin 1 g by mouth. - Continue ciprofloxacin 400 mg IV every 12 hours. Continue IV fluid. - Urology is following patient. Continue Whitlock catheter. Urology recommends possible scanning 36-72 hours - [place], morphine when necessary for pain - CT Pelvis IV in the AM. If CT scan is unremarkable, possible void trial in the morning. - Intussusception - incidental finding on CT imaging. Gen. surgery was consulted. - Small bowel follow-through does not show any intussusception. General surgery signed off. - Cocaine abuse - Tobacco abuse - Patient has been counseled. - Lorazepam when necessary Full code. Ambulation, SCDs. Discharge: Possible discharge tomorrow if okay with Urology. Problem Qualifiers (1) Prostatitis: Qualified Codes: N41.0 - Acute prostatitis Nilo Baumann DO May 30, 2017 11:21
[2017-05-30 16:30] VITALS: BP 117/67; PULSE 69; RESP 18; TEMP 98; O2SAT 97
[2017-05-30 19:32] VITALS: BP 109/59; PULSE 75; RESP 18; TEMP 97.6; O2SAT 97
[2017-05-30 23:06] VITALS: BP 107/64; PULSE 56; RESP 18; TEMP 98; O2SAT 97
[2017-05-31] MEDS: ACETAMINOPHEN/HYDROcodone 325 MG/5 MG TAB PO PRN ×2 (01:14→08:39)
[2017-05-31 04:21] VITALS: BP 103/60; PULSE 56; RESP 18; TEMP 97.6; O2SAT 97
[2017-05-31 07:30] VITALS: BP 99/57; PULSE 59; RESP 16; TEMP 97.6; O2SAT 97
[2017-05-31] MEDS: SODIUM CHLOR 0.9% 1000 ML INJ 1,000 ML IV SCH (08:40)
[2017-05-31] MEDS: SODIUM CHLORIDE 0.9% FLUSH 10 ML FLUSH IV FLUSH SCH (08:40)
[2017-05-31] MEDS: CIPROFLOXACIN 400 MG PREMIX 200 ML IV SCH (08:40)
[2017-05-31] MEDS: DOCUSATE SODIUM 50 MG/SENNA 8.6 MG TAB PO SCH (08:44)
[2017-05-31] MEDS ORDERED: TAMSULOSIN HCL 0.4 MG CAP PO SCH (09:00)
[2017-05-31] MEDS ORDERED: IOHEXOL 350 MG/ML 10 ML VIAL (for RAD DIAG) IVCONTRAST ONE (10:36)
--- NOTE | 2017-05-31 10:51 | RADRPT ---
EXAM DATE/TIME: 05/31/2017 10:27 [facility] COMPARISON: CT ABDOMEN & PELVIS W CONTRAST, May 28, 2017, 19:22. INDICATIONS : Prostatic abscess. IV CONTRAST: 65 cc Omnipaque 350 (iohexol) IV ORAL CONTRAST: No oral contrast ingested. RADIATION DOSE: 10.40 CTDIvol (mGy) MEDICAL HISTORY : None SURGICAL HISTORY : Hernia repair. ENCOUNTER: Initial ACUITY: 1 day PAIN SCALE: 0/10 LOCATION: pelvis TECHNIQUE: Volumetric scanning of the pelvis was performed. Using automated exposure control and adjustment of t he mA and/or kV according to patient size, radiation dose was kept as low as reasonably achievable to obtain optimal diagnostic quality images. DICOM format image data is available electronically for review and comparison. FINDINGS: BOWEL/MESENTERY: The visualized small and large bowel demonstrate no acute abnormality. There is no free fluid. BLADDER: Bladder is completely decompressed secondary to Whitlock catheter. RETROPERITONEUM: No adenopathy. REPRODUCTIVE: There is a bilobed periurethral prostatic low density measuring 1.1 x 1.2 cm in maximal axial dimensi ons and up to 1.9 cm in craniocaudal dimension. This is overall subara appearance to prior CT exam. P rostate is minimally prominent with periprosthetic and seminal vesicles stranding. INGUINAL: There is no lymphadenopathy or hernia. MUSCULOSKELETAL: Within normal limits for patient age. CONCLUSION: 1. Findings consistent with prostatitis and a small periurethral prostatic abscess measuring 1.1 x 1. 2 x 1.9 cm. Yves Hoffman MD on May 31, 2017 at 10:36 Board Certified Radiologist. This report was verified electronically.
[2017-05-31 11:25] VITALS: BP 108/55; PULSE 69; RESP 16; TEMP 98; O2SAT 97
--- NOTE | 2017-05-31 12:41 | HHI.PR ---
Subjective Remarks Follow up for UTI, STD, urinary retention, possible prostatic abscess. Agent is currently doing well. No fever or chills. He wants to go home. Objective Vitals Vital Signs Date Time Temp Pulse Resp B/P (MAP) Pulse Ox O2 Delivery O2 Flow Rate FiO2 05/31/17 11:25 98.0 69 16 108/55 (72) 97 05/31/17 11:10 20 05/31/17 07:30 97.6 59 16 99/57 (71) 97 05/31/17 04:21 97.6 56 18 103/60 (74) 97 05/30/17 23:06 98.0 56 18 107/64 (78) 97 05/30/17 19:32 97.6 75 18 109/59 (76) 97 05/30/17 16:30 98.0 69 18 117/67 (84) 97 I/O 05/30/17 05/30/17 05/30/17 05/31/17 05/31/17 05/31/17 07:00 15:00 23:00 07:00 15:00 23:00 Output Total 500 ml 975 ml 1650 ml Balance -500 ml -975 ml -1650 ml Output Urine Total 500 ml 975 ml 1650 ml Result Diagram: 05/29/17 0504 05/29/17 0504 Imaging Last Impressions Pelvis CT 05/31/17 0600 Signed Impressions: Service Date/Time: Wednesday, May 31, 2017 10:27 - CONCLUSION: 1. Findings consistent with prostatitis and a small periurethral prostatic abscess measuring 1.1 x 1.2 x 1.9 cm. Yves Hoffman MD Abdomen/Pelvis CT 05/28/17 1711 Signed Impressions: Service Date/Time: Sunday, May 28, 2017 19:22 - CONCLUSION: 1. Nonspecific edema/induration of the prostate and seminal vesicles. A small intraprostatic abscess is not excludable. No abscess or free fluid in the pelvic cavity. 2. Intussusception of the jejunum, presumably incidental/transient. 3. Slight fatty infiltration of the liver. 4. A few small, benign cysts of the kidneys. Christopher Piedra MD Small Bowel X-Ray 05/28/17 0000 Signed Impressions: Service Date/Time: Monday, May 29, 2017 08:44 - CONCLUSION: Unremarkable small bowel examination. The intussusception seen on the CT is not visualized. Bharath Valente MD Objective Remarks GENERAL: Alert, oriented 3, NAD. Folic catheter in place. SKIN: Warm and dry. HEAD: Normocephalic. EYES: No scleral icterus. No injection or drainage. NECK: Supple, trachea midline. No JVD or lymphadenopathy. CARDIOVASCULAR: Regular rate and rhythm without murmurs, gallops, or rubs. RESPIRATORY: Breath sounds equal bilaterally. No accessory muscle use. GASTROINTESTINAL: Abdomen soft, non-tender, nondistended. MUSCULOSKELETAL: No cyanosis, or edema. BACK: Nontender without obvious deformity. No CVA tenderness. Procedures None A/P Problem List: (1) UTI (urinary tract infection) ICD Code: N39.0 - Urinary tract infection, site not specified (2) Prostatitis ICD Code: N41.9 - Inflammatory disease of prostate, unspecified Status: Acute (3) Intussusception ICD Code: K56.1 - Intussusception Status: Acute (4) Cocaine abuse ICD Code: F14.10 - Cocaine abuse, uncomplicated (5) Tobacco abuse ICD Code: Z72.0 - Tobacco use Assessment and Plan This is a 36-year-old male with no significant PMH of present the ER with complaints of urinary retention and dysuria. No penile discharge, no lesions. Reported burning pain, 10/10, worse w/ urination, non-radiating. On arrival, BP 150/70, HR 100, O2 sat 99% on RA, Afebrile. W WBC 11.8. Chemistry unremarkable except for GFR 88. INR 1.0. A positive for UTI. Urine Drug Screen positive for Cocaine and Marijuana. - Urinary tract infection - Probable prostatitis - Gonorrhea - Urinary retention - Patient received ceftriaxone 250 mg IM and azithromycin 1 g by mouth. - Continue ciprofloxacin 400 mg IV every 12 hours. Continue IV fluid. - Urology is following patient. Continue Whitlock catheter. - Repeat CT pelvis today shows persistent prostatic abscess, images reviewed by me. We'll wait for further recommendations from urology. - [place], morphine when necessary for pain - Intussusception - incidental finding on CT imaging. Gen. surgery was consulted. - Small bowel follow-through does not show any intussusception. General surgery signed off. - Cocaine abuse - Tobacco abuse - Patient has been counseled. - Lorazepam when necessary Full code. Ambulation, SCDs. Discharge: Discharged pending urology clearance. Problem Qualifiers (1) Prostatitis: Qualified Codes: N41.0 - Acute prostatitis Nilo Baumann DO May 31, 2017 12:41 pm
[2017-05-31] MEDS ORDERED: HYDR-3516 PO (14:20)
[2017-05-31] MEDS ORDERED: CIPR-9 PO (14:20)
[2017-05-31] MEDS ORDERED: TAMS5CAP PO (14:20)
--- NOTE | 2017-05-31 15:30 | HHI.DS ---
Discharge Summary Admission Date May 28, 2017 at 8:42 pm Discharge Date: May 31, 2017 Admitting Diagnosis prostatitis, urinary retention, intussusception (1) UTI (urinary tract infection) ICD Code: N39.0 - Urinary tract infection, site not specified (2) Prostatitis ICD Code: N41.9 - Inflammatory disease of prostate, unspecified Status: Acute (3) Intussusception ICD Code: K56.1 - Intussusception Status: Acute (4) Cocaine abuse ICD Code: F14.10 - Cocaine abuse, uncomplicated (5) Tobacco abuse ICD Code: Z72.0 - Tobacco use Procedures None Brief History - From Admission This is a 36-year-old male with no significant PMH of present the ER with complaints of urinary retention and dysuria. Per patient symptoms have been ongiong x2 wks, believes symptoms are due to "STD". Denies fever, chills, nausea, vomiting or diarrhea. No penile discharge, no lesions. Reports burning pain, 10/10, worse w/ urination, non-radiating. No h/o similar symptoms. On arrival, BP 150/70, HR 100, O2 sat 99% on RA, Afebrile. W WBC 11.8. Chemistry unremarkable except for GFR 88. INR 1.0. A positive for UTI. Urine Drug Screen positive for Cocaine and Marijuana. CT Abdomen/Pelvis was nonspecific edema/induration. 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 S/p Whitlock in ER w/ 600cc urinary output. Chlam/GN negative. S/p Rocephin/Zithro in ER. Dr. Tang consulted, paul jay pt in am. Dr. Bullock consulted, no emergent surgical intervention indicated at this time. CBC/BMP: 05/29/17 0504 05/29/17 0504 Significant Findings Laboratory Tests Test 05/28/17 17:20 05/29/17 05:04 White Blood Count 11.8 TH/MM3 (4.0-11.0) Red Blood Count 4.43 MIL/MM3 (4.50-5.90) 4.07 MIL/MM3 (4.50-5.90) Neutrophils (%) (Auto) 82.1 % (16.0-70.0) 74.0 % (16.0-70.0) Neutrophils # (Auto) 9.7 TH/MM3 (1.8-7.7) Activated Partial Thromboplast Time 32.7 SEC (24.3-30.1) Urine Turbidity HAZY (CLEAR) Urine Occult Blood TRACE (NEG) Urine Leukocyte Esterase LARGE (NEG) Urine RBC 19 /hpf (0-3) Urine WBC Clumps RARE (NONE) Urine Bacteria FEW /hpf (NONE) Urine Mucus FEW /lpf (OCC) Random Glucose 123 MG/DL (74-106) Total Protein 8.3 GM/DL (6.4-8.2) Sodium Level 133 MEQ/L (136-145) Chloride Level 97 MEQ/L (98-107) Estimat Glomerular Filtration Rate 88 ML/MIN (>89) Lipase 61 U/L (73-393) Urine Cocaine Screen POS (NEG) Urine Cannabinoids Screen POS (NEG) Hematocrit 37.9 % (39.0-51.0) Monocytes (%) (Auto) 8.5 % (0.0-8.0) Blood Urea Nitrogen 6 MG/DL (7-18) Imaging Last Impressions Pelvis CT 05/31/17 0600 Signed Impressions: Service Date/Time: Wednesday, May 31, 2017 10:27 - CONCLUSION: 1. Findings consistent with prostatitis and a small periurethral prostatic abscess measuring 1.1 x 1.2 x 1.9 cm. Yves Hoffman MD Abdomen/Pelvis CT 05/28/17 1711 Signed Impressions: Service Date/Time: Sunday, May 28, 2017 19:22 - CONCLUSION: 1. Nonspecific edema/induration of the prostate and seminal vesicles. A small intraprostatic abscess is not excludable. No abscess or free fluid in the pelvic cavity. 2. Intussusception of the jejunum, presumably incidental/transient. 3. Slight fatty infiltration of the liver. 4. A few small, benign cysts of the kidneys. Christopher Piedra MD Small Bowel X-Ray 05/28/17 0000 Signed Impressions: Service Date/Time: Monday, May 29, 2017 08:44 - CONCLUSION: Unremarkable small bowel examination. The intussusception seen on the CT is not visualized. Bharath Valente MD PE at Discharge GENERAL: Alert, oriented 3, NAD. Folic catheter in place. SKIN: Warm and dry. HEAD: Normocephalic. EYES: No scleral icterus. No injection or drainage. NECK: Supple, trachea midline. No JVD or lymphadenopathy. CARDIOVASCULAR: Regular rate and rhythm without murmurs, gallops, or rubs. RESPIRATORY: Breath sounds equal bilaterally. No accessory muscle use. GASTROINTESTINAL: Abdomen soft, non-tender, nondistended. MUSCULOSKELETAL: No cyanosis, or edema. BACK: Nontender without obvious deformity. No CVA tenderness. Pt update on day of discharge Patient is currently doing well. No acute concerns. No fever or chills. Hospital Course This is a 36-year-old male with no significant PMH of present the ER with complaints of urinary retention and dysuria. No penile discharge, no lesions. Reported burning pain, 10/10, worse w/ urination, non-radiating. On arrival, BP 150/70, HR 100, O2 sat 99% on RA, Afebrile. W WBC 11.8. Chemistry unremarkable except for GFR 88. INR 1.0. A positive for UTI. Urine Drug Screen positive for Cocaine and Marijuana. - Urinary tract infection - Probable prostatitis - Gonorrhea - Urinary retention - Patient received ceftriaxone 250 mg IM and azithromycin 1 g by mouth. - Continue ciprofloxacin 400 mg IV every 12 hours in the hospital. We'll continue ciprofloxacin 500 mg twice a day on discharge. - Urology is following patient. Continue Whitlock catheter. - Repeat CT pelvis today shows persistent prostatic abscess, images reviewed by me. We'll wait for further recommendations from urology. - [place], morphine when necessary for pain - I discussed with urologist who recommended discharging patient with Whitlock catheter. Patient is to follow-up with urologist in 1 week for voiding trial. Urologist recommended antibiotics for 8 weeks as well as Flomax - Intussusception - incidental finding on CT imaging. Gen. surgery was consulted. - Small bowel follow-through does not show any intussusception. General surgery signed off. - Cocaine abuse - Tobacco abuse - Patient has been counseled. - Lorazepam when necessary. Patient has not used lorazepam in the last 48 hours. Full code. Ambulation, SCDs. Pt Condition on Discharge: Good Discharge Disposition: Discharge Home Discharge Time: > 30 minutes Discharge Instructions DIET: Follow Instructions for: As Tolerated, No Restrictions Activities you can perform: Regular-No Restrictions Follow up Referrals: Urology - 06/07/17 with Stephen Tang DO New Medications: Ciprofloxacin (Cipro) 500 Mg Tab 500 MG PO BID for Infection for 56 Days, #112 TAB 0 Refills Hydrocodone/Acetaminophen (Hydrocodone-Acetamin 5-325 mg) 5 Mg-325 Mg Tablet 1 TAB PO Q6HR PRN for PAIN SCALE 5 TO 10, #30 TAB Tamsulosin (Flomax) 0.4 Mg Cap 0.4 MG PO DAILY for Urinary , #90 CAP 3 Refills Nilo aBumann DO May 31, 2017 3:30 pm
[2017-05-31 15:34] VITALS: BP 111/65; PULSE 73; RESP 18; TEMP 98.2; O2SAT 98
== END 2017-05-31 17:17 | disposition home or self-care (01) ==
LOC: NEPD 14:00 → NEDA 20:42 → NEPFCDU 22:06
PROVIDERS: ADMIT Hospitalist; ATTEND Hospitalist
DX: N41.0 Acute prostatitis (principal); N34.2 Other urethritis; B96.89 Other specified bacterial agents as the cause of diseases classified elsewhere; N41.2 Abscess of prostate; K56.1 Intussusception; F14.10 Cocaine abuse, uncomplicated; Z72.0 Tobacco use
CPT/HCPCS: 51702; 72193; 74177; 74250; 80053; 80307; 81001; 82550; 83690; 85025; 85610; 85730; 87077; 87086; 87491; 87591; 87804; 96361; 96365; 96366; 96372; 96375; 96376; 99285; G0378; J0696; J0744; J2060; J2270; J7030; Q9963; Q9967